=== PATIENT | female | born 1940 | race Caucasian/White ===

== ENCOUNTER 2018-06-16 17:26 | Emergency (ER) | payer MEDICARE, OTHER ==
[2018-06-16 17:48] LABS: Bilirubin Negative (Negative); Blood, Urine Trace (Negative); Clarity Cloudy (Clear); Glucose, Urine (Dipstick) Negative (Negative); Leukocyte Trace (Negative); Nitrite Positive (Negative); Protein, Urine (Dipstick) Negative (Neg-Trace); Urobilinogen 0.2 mg/dL (0.2-1.0)
[2018-06-16 17:49] LABS: Bacteria/HPF 3+ HPF (None Seen); Squamous Epithelial 0-3 HPF (0-3)
[2018-06-16 18:16] LABS: #Basophils 0.1 thou/uL (0.0-0.2); #Eosinphils 0.3 thou/uL (0.0-0.7); #Lymphocytes 2.4 thou/uL (1.20-3.40); #Monocytes 0.6 thou/uL (0.11-0.59); #Neutrophils 4.3 thou/uL (1.40-6.50); %Basophils 1.4 % (0.0-1.0); %Lymphocytes 31.1 % (21.0-51.0); %Monocytes 7.9 % (0.0-10.0); %Neutrophils 55.7 % (42.0-75.0); Hemoglobin 13.8 g/dL (12.0-16.0); Mean Corpuscular HGB CONC 33.3 g/dL (32.0-36.0); Mean Corpuscular Hemoglobin 29.5 pg (27.0-31.0); Mean Corpuscular Volume 88.6 fL (78.0-98.0); Mean Platelet Volume 8.2 fL (7.4-10.4); Platelet Count 171 thou/uL (130-400); RBC Distribution Width 11.8 % (11.5-14.5); Red Blood Cell (RBC) Count 4.68 mill/uL (4.20-5.40); White Blood Cell (WBC) Count 7.8 thou/uL (4.8-10.8)
[2018-06-16 18:29] LABS: ALT (SGPT) 10 U/L (8-55); AST (SGOT) 16 U/L (5-34); Alkaline Phosphatase 119 U/L (40-150); Anion Gap 14 mmol/L (10-20); BUN (Urea Nitrogen) 17 mg/dL (9.8-20.1); Bilirubin, Total 0.4 mg/dL (0.2-1.2); Calc. Creatinine Clearance 0 mL/min (70-130); Calcium 9.8 mg/dL (7.8-10.44); Carbon Dioxide 24 mmol/L (23-31); Chloride 106 mmol/L (98-107); Estimated GFR-MDRD 55; Globulin 3.2 g/dL (2.4-3.5); Glucose 107 mg/dL (83-110); Protein, Total 7.2 g/dL (6.0-8.3); Sodium 140 mmol/L (136-145)
[2018-06-16] MEDS ORDERED: Cephalexin 500 MG CAP ONE (19:16)
--- NOTE | 2018-06-16 19:47 | CT ---
CT ABDOMEN AND PELVIS PERFORMED WITHOUT CONTRAST ENHANCEMENT: HISTORY: The patient has ulcerative colitis, a possible UTI, urosepsis, and high blood pressure. COMPARISON: None. FINDINGS: ABDOMEN: The lung bases show interstitial fibrotic appearing lung change. The liver, spleen, and pancreas regions appear unremarkable. The gallbladder is not definitely visua lized. The right and left adrenal glands are normal in size. Subtle hypodensity involving the upper pole of the right kidney is statistically most likely a cyst. There is a 3 mm, nonobstructing mid pole righ t renal calculus. There are no left-sided renal calculi identified. No ureteral calculi are seen. No significant periaortic or mesenteric adenopathy. No bowel wall findings. There is a mild amount of stool throughout the colon. PELVIS: There are no signs of any significant, adenopathy, mass, or free fluid. The appendix is dif ficult to identify. The cecum is high in position. Review of the osseous structures shows arthritic change of the spine. IMPRESSION: 1. Punctate, nonobstructing, mid pole right renal calculus. 2. Interstitial fibrotic lung change. POS: [facility]
== END 2018-06-16 19:26 | disposition home or self-care (01) ==
LOC: SCSER 17:26
DX: N39.0 Urinary tract infection, site not specified (principal); I10 Essential (primary) hypertension; E03.9 Hypothyroidism, unspecified; F41.9 Anxiety disorder, unspecified; F32.9 Major depressive disorder, single episode, unspecified; Z79.899 Other long term (current) drug therapy
CPT/HCPCS: 74176; 80053; 81003; 81015; 83605; 85025; 87077; 87086; 87186; 93005